=== PATIENT | male | born 1980 | race Caucasian/White ===

== ENCOUNTER 2022-05-29 11:24 | Outpatient (CLI) | payer BC, SELFPAY ==
[2022-05-29 12:03] LABS: Hemoglobin A1C* 7.2 % (0-5.6)
[2022-05-29 13:56] LABS: Albumin* 4.5 g/dL (3.3-5.0); Chloride* 102 mmol/L (96-114); Sodium* 140 mmol/L (135-149)
[2022-05-29 13:57] LABS: Potassium* 4.2 mmol/L (3.6-5.1)
[2022-05-29 13:59] LABS: Carbon Dioxide* 27 mmol/L (20-32); Cholesterol* 162 mg/dL (90-199); Creatinine* 0.8 mg/dL (0.5-1.5); Estimated Glomerular Filt Rate 115 ml/min; Total Protein* 7.5 g/dL (6.0-8.3)
[2022-05-29 14:00] LABS: Alanine Aminotransferase* 42 U/L (4-50); Alkaline Phosphatase* 84 U/L (40-150); Aspartate Amino Transferase* 39 U/L (12-35); Bilirubin Total* 0.5 mg/dL (0.1-1.5); Blood Urea Nitrogen* 14 mg/dL (5-24); Calcium* 9.8 mg/dL (8.4-10.6); Glucose* 121 mg/dL (60-115); HDL Cholesterol* 30 mg/dL (>=40); LDL Cholesterol Calculated 100 mg/dL (<100); Triglycerides* 161 mg/dL (40-149)
[2022-05-29 14:54] LABS: Creatinine Urine 88.7 mg/dL
[2022-05-29 14:57] LABS: Microalbumin Creatinine Ratio 60 mg/g (0-30); Microalbumin Urine 6 mg/dL
== END 2022-05-29 11:25 | disposition home or self-care (01) ==
PROVIDERS: PCP Nurse Practitioner Family; Visit Provider Nurse Practitioner Family
DX: E78.5 Hyperlipidemia, unspecified (principal); E11.9 Type 2 diabetes mellitus without complications; I10 Essential (primary) hypertension; R07.89 Other chest pain
CPT/HCPCS: 80053; 80061; 82043; 82570; 83036

== ENCOUNTER 2022-06-29 10:16 | Outpatient (CLI) | payer BC, SELFPAY | END 2022-06-29 10:17 | disposition home or self-care (01) | LOC: KYNREF 10:16 | PROVIDERS: PCP Nurse Practitioner Family; Visit Provider Nurse Practitioner Family | DX: R53.83 Other fatigue (principal) | CPT/HCPCS: 84443 ==

== ENCOUNTER 2022-07-10 13:47 | Outpatient (CLI) | payer BC, SELFPAY ==
--- NOTE | 2022-07-10 14:00 | CRLHL7_ITS ---
For Patients: As a result of the Century Cures Act, medical imaging exams and procedure reports are released immediately into your electronic medical record. You may view this report before your referring provider. If you have questions, please contact your health care provider. DATE: 07/10/2022. CLINICAL HISTORY: Sinusitis. TECHNIQUE: Standard CT scanning of the paranasal sinuses was performed. COMPARISON: None available. FINDINGS: Mild to moderate circumferential polypoid mucosal thickening of the maxillary sinuses. The maxillary ostia and ethmoid infundibula are patent. Mild mucosal thickening of the right frontal sinus with opacification of the right frontal sinus drainage pathway. The left frontal sinus is well aerated. The left frontal sinus drainage pathway is patent. The anterior and posterior ethmoid air cells are well aerated. The sphenoid sinuses are well aerated. The sphenoethmoidal recesses are patent. There is severe rightward deviation of the nasal septum with an associated osseous spur. There is suggestion of a 1.7 cm polyp within the left nasal cavity. The mastoid air cells well aerated. The bony orbits and ventral skullbase are intact. IMPRESSION: 1. [id number] circumferential polypoid mucosal thickening of the maxillary sinuses. 2. Mild mucosal thickening of the right frontal sinus with opacification of the right frontal sinus drainage pathway. 3. Suggestion of a 1.7 cm polyp within the left nasal cavity. 4. Severe rightward deviation of the nasal septum with an associated osseous spur. Please note that all CT scans at this facility use dose modulation, iterative reconstruction, and/or weight-based dosing when appropriate to reduce radiation dose to as low as reasonably achievable. Dictated by Mike Agarwal MD @ 07/10/2022 9:54:09 PM (Electronically Signed)
== END 2022-07-10 13:48 | disposition home or self-care (01) ==
LOC: CT 13:48
PROVIDERS: PCP Nurse Practitioner Family; Visit Provider Nurse Practitioner Family
DX: J32.9 Chronic sinusitis, unspecified (principal); J32.0 Chronic maxillary sinusitis; J33.9 Nasal polyp, unspecified; J34.2 Deviated nasal septum
CPT/HCPCS: 70486

== ENCOUNTER 2022-07-25 08:57 | Outpatient (CLI) | payer BC, SELFPAY ==
--- NOTE | 2022-07-25 08:15 | CRLHL7_ITS ---
For Patients: As a result of the Century Cures Act, medical imaging exams and procedure reports are released immediately into your electronic medical record. You may view this report before your referring provider. If you have questions, please contact your health care provider. Technique: Double-contrast esophagram performed after the uneventful administration of effervescent crystals and thick barium followed by thin barium. Fluoroscopy time 1 minutes 6 seconds. Indication: Dysphagia Comparison: None. Findings: Esophagus: Normal morphology and motility. No stricture or mass. Gastroesophageal reflux: Mild spontaneous reflux in the distal esophagus. Small sliding hiatal hernia is present which measures 2.9 cm. Impression: Small sliding hiatal hernia and mild spontaneous reflux. Normal motility. Dictated by Dangelo Bustillos MD @ 07/25/2022 10:52:08 AM (Electronically Signed)
== END 2022-07-25 08:58 | disposition home or self-care (01) ==
LOC: RAD 08:58
PROVIDERS: PCP Nurse Practitioner Family; Visit Provider Otolaryngology
DX: R13.10 Dysphagia, unspecified (principal); K44.9 Diaphragmatic hernia without obstruction or gangrene; K21.9 Gastro-esophageal reflux disease without esophagitis
CPT/HCPCS: 74221

== ENCOUNTER 2022-08-05 19:32 | Outpatient (CLI) | payer BC, SELFPAY ==
--- NOTE | 2022-08-14 12:59 | W.PM.SLEEP ---
Sleep Study Details Details Interpreting Provider: Gustavo Cooper MD Date of Sleep Study: 08/05/22 Sleep Study Details: STUDY TYPE:? Home ? BMI:? Not recorded ORDERING PROVIDER:? Leighton INDICATION:? Concerns about sleep apnea ? SLEEP SUMMARY:? 560.5 minutes monitored RESPIRATORY SUMMARY:? AHI 17.4, supine 28, left lateral 6.8, right lateral 4.5 Low oxygen 80% 3% of study oxygen less than 90%, 0.1% of study less than 85% Snoring 0.7% PERIODIC LIMB MOVEMENTS OF SLEEP:? Not recorded CARDIAC:? 39-104, mean 55.3 beats per minute IMPRESSION:? Moderate obstructive sleep apnea with supine position dependency RECOMMENDATION: Treatment options include AutoSet CPAP pressure 4-17 versus a dental appliance
== END 2022-08-05 19:33 | disposition home or self-care (01) ==
LOC: SLEEP 19:32
PROVIDERS: PCP Nurse Practitioner Family; Visit Provider Otolaryngology
DX: G47.33 Obstructive sleep apnea (adult) (pediatric) (principal)
CPT/HCPCS: 95806

== ENCOUNTER 2022-08-07 18:31 | Outpatient (CLI) | payer BC, SELFPAY ==
[2022-08-07 21:32] LABS: Chloride* 99 mmol/L (96-114); Potassium* 4.8 mmol/L (3.6-5.1); Sodium* 140 mmol/L (135-149)
[2022-08-07 21:34] LABS: Creatinine* 0.9 mg/dL (0.5-1.5); Estimated Glomerular Filt Rate 111 ml/min
[2022-08-07 21:35] LABS: Blood Urea Nitrogen* 21 mg/dL (5-24); Calcium* 10.2 mg/dL (8.4-10.6); Carbon Dioxide* 28 mmol/L (20-32); Glucose* 143 mg/dL (60-115)
== END 2022-08-07 18:32 | disposition home or self-care (01) ==
PROVIDERS: PCP Nurse Practitioner Family; Visit Provider Nurse Practitioner Family
DX: R42 Dizziness and giddiness (principal); E11.9 Type 2 diabetes mellitus without complications
CPT/HCPCS: 80048

== ENCOUNTER 2023-07-26 13:54 | Outpatient (CLI) | payer BC, SELFPAY | END 2023-07-26 13:55 | disposition home or self-care (01) | PROVIDERS: PCP Nurse Practitioner Family; Visit Provider Nurse Practitioner Family | DX: I10 Essential (primary) hypertension (principal); E78.5 Hyperlipidemia, unspecified; E11.9 Type 2 diabetes mellitus without complications | CPT/HCPCS: 80053; 80061; 82043; 82570; 84443 ==

== ENCOUNTER 2023-08-01 07:27 | Outpatient (CLI) | payer BC, SELFPAY ==
--- NOTE | 2023-08-01 08:00 | CRLHL7_ITS ---
For Patients: As a result of the Century Cures Act, medical imaging exams and procedure reports are released immediately into your electronic medical record. You may view this report before your referring provider. If you have questions, please contact your health care provider. INDICATION: Testicular pain. Inguinal and umbilical hernias. TECHNIQUE: Axial images were obtained from the diaphragm to the pubic symphysis. Reformats were obtained in the coronal and sagittal plane. IV Contrast: 100 cc Isovue 370 Oral Contrast: None COMPARISON: None. FINDINGS: Lower chest: Calcified granuloma right lower lobe. Liver: Calcification in the liver consistent with old granulomatous disease. Gallbladder and bile ducts: Unremarkable. No stones or inflammation. No biliary dilatation. Spleen: Calcification within the spleen consistent with old granulomatous disease. Pancreas: Unremarkable. No mass or inflammation. Adrenal glands: Indeterminate left adrenal nodule measuring 13 millimeters. Kidneys: Symmetric renal enhancement without hydronephrosis. Subcentimeter hypodensities within the kidney are too small for characterization although visually likely represent renal cysts. Vasculature: Unremarkable. GI tract: Fluid-filled stomach. No dilated loops of large or small intestine with fluid noted throughout the colon. Appendix normal in caliber without wall thickening or periappendiceal appendiceal inflammation. Metal foreign body noted within the appendix (series 2, image 109). Pelvis: Subcentimeter inguinal lymph nodes. Bones: Spondylolysis L5. Small broad-based annular bulges at L4-5 and L5-S1. IMPRESSION: 1. No dilated loops of large or small intestine. Fluid noted throughout the colon which can be seen in a diarrheal illness. 2. Appendix is normal in caliber and there is no periappendiceal inflammation. Incidental note is made of a metal foreign body within the appendiceal lumen. 3. Old granulomatous disease. 4. Indeterminate left adrenal nodule measuring 13 millimeters. Follow-up adrenal CT can be considered in 12 months. Please note that all CT scans at this facility use dose modulation, iterative reconstruction, and/or weight-based dosing when appropriate to reduce radiation dose to as low as reasonably achievable. Dictated by Kareem Sy MD @ 08/01/2023 9:52:06 AM (Electronically Signed)
== END 2023-08-01 07:28 | disposition home or self-care (01) ==
LOC: CT 07:28
PROVIDERS: PCP Nurse Practitioner Family; Visit Provider Nurse Practitioner Family
DX: R10.31 Right lower quadrant pain (principal); N50.819 Testicular pain, unspecified; E27.9 Disorder of adrenal gland, unspecified
CPT/HCPCS: 74177; Q9967

== ENCOUNTER 2023-09-26 07:31 | Outpatient (CLI) | payer BC, SELFPAY ==
--- NOTE | 2023-09-26 08:00 | NM_ITS ---
Patient: YULIA YOUNG Facility:?[facility] Patient ID:?[id number] Site Patient ID:?[id number]. Site :?[id number] Study:?NM-Gallbladder Procedure JUDY medina/ GBEF-09/26/2023 10:23:17 AM Ordering Physician:?YEIMI ARGUELLO Final Report: INDICATION: Epigastric pain. TECHNIQUE: 5.44mCi [id number] was injected intravenously. Images of the liver, gallbladder and abdomen were obtained for 45 minutes. 2.23mcg Kinevac was then administered and imaging continued for an additional 20 minutes. COMPARISON: CT 08/01/2023 FINDINGS: There is good uptake of activity by the hepatocytes. There is visualization of the biliary tree, gallbladder and small bowel. In response to CCK administration, there is a gallbladder ejection fraction of 32 percent. IMPRESSION: 1. There is no evidence of acute or chronic cholecystitis. 2. Slightly decreased gallbladder ejection fraction of 32 percent. Dictated by Dangelo Bustillos MD @ 09/26/2023 12:02:07 PM Signed by:?Dangelo Bustillos MD @09/26/2023 12:02:07 PM (Electronic Signature)
== END 2023-09-26 07:32 | disposition home or self-care (01) ==
LOC: NM 07:32
PROVIDERS: PCP Nurse Practitioner Family; Visit Provider Nurse Practitioner Family
DX: R10.13 Epigastric pain (principal); R10.11 Right upper quadrant pain
CPT/HCPCS: 78227; A9537; J2805

== ENCOUNTER 2024-07-21 08:40 | Outpatient (CLI) | payer BC, SELFPAY | END 2024-07-21 08:41 | disposition home or self-care (01) | PROVIDERS: PCP Nurse Practitioner Family; Visit Provider Nurse Practitioner Family | DX: E78.5 Hyperlipidemia, unspecified (principal); E11.65 Type 2 diabetes mellitus with hyperglycemia; Z13.29 Encounter for screening for other suspected endocrine disorder; Z13.21 Encounter for screening for nutritional disorder | CPT/HCPCS: 80053; 80061; 82043; 82570; 82607; 84443 ==

== ENCOUNTER 2024-07-23 07:00 | Outpatient (CLI) | payer BC, SELFPAY ==
--- NOTE | 2024-07-23 07:15 | CRLHL7_ITS ---
For Patients: As a result of the Century Cures Act, medical imaging exams and procedure reports are released immediately into your electronic medical record. You may view this report before your referring provider. If you have questions, please contact your health care provider. INDICATION: Right upper quadrant pain TECHNIQUE: Conventional two-dimensional rivera-scale ultrasound of the right upper quadrant. COMPARISON: Abdomen/pelvis CT of 08/01/2023 FINDINGS: The gallbladder is normal, with no evidence of stones. No gallbladder wall thickening or pericholecystic fluid is demonstrated. The patient is reportedly not tender over the gallbladder. No biliary ductal dilation is evident. The common bile duct measures 3 mm. The liver is fatty and borderline enlarged. The pancreas is within normal limits. The right kidney is unremarkable. The visualized portions of the abdominal aorta and inferior vena cava are negative. IMPRESSION: 1. Normal gallbladder and bile ducts. 2. Fatty, borderline enlarged liver. Dictated by Arnaud Morfin MD @ 07/23/2024 4:23:24 PM (Electronically Signed)
== END 2024-07-23 07:01 | disposition home or self-care (01) ==
LOC: US 07:00
PROVIDERS: PCP Nurse Practitioner Family; Visit Provider Nurse Practitioner Family
DX: R10.11 Right upper quadrant pain (principal); K76.0 Fatty (change of) liver, not elsewhere classified
CPT/HCPCS: 76705

== ENCOUNTER 2024-10-13 11:04 | Outpatient (CLI) | payer BC, SELFPAY | END 2024-10-13 11:05 | disposition home or self-care (01) | PROVIDERS: PCP Nurse Practitioner Family; Visit Provider Nurse Practitioner Family | DX: R10.11 Right upper quadrant pain (principal) | CPT/HCPCS: 80076; 82150; 83690 ==

== ENCOUNTER 2024-10-15 13:45 | Outpatient (RCR) | payer BC, SELFPAY ==
--- NOTE | 2024-09-22 09:56 | OT.OPOE ---
OT Outpatient Ortho Eval OT Outpatient Ortho Eval* Start: 09/22/24 08:34 Freq: Status: Active Protocol: Document 09/22/24 08:41 CSS (Rec: 09/22/24 09:44 CSS [id number]) E-signed By Valencia Diamond, OTR/L OT OP Ortho Eval Details Complexity Complexity Low Insurance Information Insurance Information [employer] Outpatient History/Precautions Current Condition/Medical Diagnosis Referring Provider Cindy Levy PA-C Medical Diagnoses M77.12 lateral epicondylitis, left elbow M25.522- pain in left elbow Treatment Diagnosis pain in elbow(left)-M25.522 elbow instability(left)- M25. 322 Wrist instability(left)-M25. 332 hand instability (left)-M25. 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 Notes increased pain w/ overuse of L arm. Last 3-4 years pt is having these symptoms and notes increase in symptoms with work; pt is seasonal worker. Pain Assessment Pain Pain Yes Pain Comments L arm rest: 3/10 L arm liftin/10 Can go to 8+/10 pain sometimes Range of Motion and Strength Shoulder Range of Motion and Strength Shoulder Range of Motion and Strength no limits noticed in elbow, forearm, wrist or digits. 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 Hand Pinch/Senior Analyst Strength Hand Pinch/Senior Analyst Strength Hand Pinch/Senior Analyst Strength Left Hand,Right Hand Left Hand Senior Analyst Strength Position 1 in Elbow 124 Flexion (lbs) Lateral Pinch Strength (lbs) 21 Three Point Pinch (lbs) 22 Right Hand Senior Analyst Strength Position 1 in Elbow 147 Flexion (lbs) Lateral Pinch Strength (lbs) 25 Three Point Pinch (lbs) 25 OT Objective Data Sensation Sensation Assessment Summary Comments pt sometimes has numbness in L hand 2nd-4th digits OT Problems Problems Problems Decreased Strength,Pain, Sensory Sensitivity,Lifting, Gripping Problems Comments Pt notes increased symptoms with work duties. Pt is currently laid off but notes when work starts symptoms increase. Patient Potential Good Assessment Assessment Assessment Pt is a 44 year old male who presents to OP OT with referral for left lateral epicondyle pain. Pt has been having symptoms of pain, numbness, and decreased strength for approx 3-4 years. He completes seasonal works, so notes an increase with symptoms during work and then decrease of symptoms when not working. Pt's symptoms coincide with lateral epicondylitis and pt would benefit from OP OT to address symptoms so pt can return to baseline without pain or numbness. Occupational Therapy Treatment Plan - OP Potential Rehabilitation Potential Good Set Goals Goals Set with Patient Yes Goals Goals Goals to be met by 12/15/24: 1) Pt will reduce resting L arm pain to 2/10 or less in 3 consistent sessions. 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 3) Pt will verbalize completion of HEP in order to progress during goals. Treatment Plan Treatment Plan Evaluation,Edema Control, Iontophoresis Other Treatment Plan Iontophoresis with dexamethasone sodium phosphate 1 ml (4mg per mL*) Expected Frequency 1-2x Week Expected Duration 10-12 week Home Program Home Program Home Program Initiated Home Program Specifics wrist stretches; ICE; cross friction massage Certification Certification Statement I Certify That: Therapy Services Provided, Therapy Plan Established, Therapy Plan Reviewed Certification Information Clinic ID # [id number] Initial Certification Date 09/22/24 Recertification Due Date 12/15/24 Provider Signature Required Yes Provider Signature Shows Agreement With POC & Medical Necessity Physician NPI Number Write NPI# Here Physician Comment/Change Comment or Changes Physician Signature & Date Requested Please Sign/Date Here
--- NOTE | 2025-01-04 12:51 | REH.OT ---
Pt does not return back to OT. Pt was progressing towards goals. Pt will require new OT order if pt would like to be seen by OT for ongoing treatment.
== END 2025-02-12 23:59 | disposition home or self-care (01) ==
PROVIDERS: PCP Nurse Practitioner Family; Visit Provider Physician Assistant
DX: M77.12 Lateral epicondylitis, left elbow (principal); M25.522 Pain in left elbow; M25.332 Other instability, left wrist; M25.342 Other instability, left hand; Z51.89 Encounter for other specified aftercare
CPT/HCPCS: 97035; 97110; 97140; 97165; X5282

== ENCOUNTER 2024-11-03 15:12 | Outpatient (CLI) | payer BC, SELFPAY ==
--- NOTE | 2024-11-03 14:30 | CRLHL7_ITS ---
For Patients: As a result of the Century Cures Act, medical imaging exams and procedure reports are released immediately into your electronic medical record. You may view this report before your referring provider. If you have questions, please contact your health care provider. INDICATION: 44-year-old man with history of right upper quadrant abdominal pain TECHNIQUE: 7.0 MCi Tc 99m Mebrofenin were administered intravenously and serial static images were obtained over the anterior abdomen over 60 minutes, demonstrating radiotracer uptake within the gallbladder and demonstrating tracer exiting into the small bowel. Subsequently, 2.27 Micrograms cholecystokinin was administered intravenously and the anterior abdomen was serially imaged with static views for another 30 minutes. COMPARISON: Abdominal ultrasound 07/23/2024 FINDINGS: There is normal radionuclide activity in the liver, common bile duct, gallbladder and small bowel. There is no evidence for cystic or common duct obstruction or intrinsic liver disease. After administration of cholecystokinin, tracer is demonstrated exiting the gallbladder into the common bile duct and small bowel. The gallbladder ejection fraction measures 77%. Normal range for GB EF: Equal to or greater than 35%. IMPRESSION: 1. Normal hepatobiliary scan. 2. Gallbladder ejection fraction measures 77%, within normal limits. Dictated by Arnaud Quintanilla MD @ 11/04/2024 9:12:55 AM (Electronically Signed)
== END 2024-11-03 15:13 | disposition home or self-care (01) ==
LOC: NM 15:12
PROVIDERS: PCP Nurse Practitioner Family; Visit Provider Nurse Practitioner Family
DX: R10.11 Right upper quadrant pain (principal); E27.9 Disorder of adrenal gland, unspecified
CPT/HCPCS: 78227; A9537; J2805